=== PATIENT | female | born 1975 | race Caucasian/White ===

== ENCOUNTER 2016-09-13 18:43 | Emergency (ER) | payer OTHER ==
[2016-09-13 22:48] LABS: BASOPHIL 0.5 % (0-2); EOSINOPHIL 2.4 % (0-5); HCT 37.3 % (37.0-47.0); HGB 12.7 g/dl (12.5-16.0); LYMPHOCYTE 31.4 % (15-48); MCH 26.5 pg (25.0-31.0); MCV 77.9 fL (78.0-100.0); MONOCYTE 7.8 % (0-12); MPV 8.7 fL (6.0-9.5); NEUTROPHIL 57.9 % (41-80); PLT 286 K/uL (150-400); RBC 4.79 M/uL (4.20-5.40); RDW 14.9 % (11.5-14.0); WBC 9.2 K/uL (4.0-10.5)
[2016-09-13 23:07] LABS: CKMB 1.84 ng/mL (0.97-4.94); TROPONIN T < 0.010 ng/mL
[2016-09-13 23:08] LABS: ALBUMIN 4.5 g/dL (3.5-5.0); BILIRUBIN - TOTAL 0.6 mg/dL (0.1-1.0); CREATININE 0.7 mg/dL (0.5-1.0); GLOBULIN (CALCULATION) 2.7 g/dL (2.2-4.2); POTASSIUM 3.9 mmol/L (3.5-5.1); TOTAL PROTEIN 7.2 g/dL (6.4-8.3)
== END 2016-09-13 23:52 | disposition home or self-care (01) ==
LOC: FER 18:43
PROVIDERS: Emergency Medicine Emergency Medical Services
DX: R07.89 Other chest pain (principal); R00.2 Palpitations; Z88.5 Allergy status to narcotic agent
CPT/HCPCS: 36415; 71020; 80053; 82550; 82553; 84484; 85025; 93005

== ENCOUNTER 2021-07-05 12:36 | Emergency (ER) | payer OTHER ==
[~2021-07-05 12:36] MED LIST: 3IN1 COMMODE; AMOX TR-K CLV1 EAC4 PO; CEFDINIR300 MG PO
== END 2021-07-05 15:38 | disposition home or self-care (01) ==
LOC: FER 12:36
DX: R21 Rash and other nonspecific skin eruption (principal); Z88.6 Allergy status to analgesic agent
CPT/HCPCS: J1200; J2930